=== PATIENT | male | born 1995 | race Caucasian/White ===

== ENCOUNTER 2023-08-25 07:25 | Emergency (ER) | payer OTHER, SELFPAY ==
[2023-08-25 07:41] VITALS: BP 135/60; PULSE 90; RESP 18; TEMP 36.7; O2SAT 97; BMI 26.9
--- NOTE | 2023-08-25 07:45 | DI.RAD.S_ITS ---
PROCEDURE: XR KNEE LT 3V INDICATIONS: felt pop TECHNIQUE: 3 views of the knee were acquired. COMPARISON: None. FINDINGS: Bones: No fractures or dislocations. No suspicious bony lesions. Soft tissues: Small joint effusion. No suspicious soft tissue calcifications. IMPRESSION: No acute osseous abnormality. Consider MRI for follow-up examination. Dictated by: Bonilla Glover M.D. on 08/25/2023 at 9:08 Approved by: Bonilla Glover M.D. on 08/25/2023 at 9:08
--- NOTE | 2023-08-25 08:23 | ED_ITS ---
HPI - Extremity Injury (Lower) General Chief Complaint: Extremity Injury, Lower Stated Complaint: felt the joint in knee slip Time Seen by Provider: 08/25/23 07:34 Source: patient Mode of arrival: Wheelchair History of Present Illness HPI Narrative: Patient is a 28-year-old male here for evaluation of left knee injury. He states last evening he was wrestling with some individuals. He is unsure exactly what happened whether or not he was hit and twisted his knee or whether it twisted when he was standing up but he stated that he felt like his knee shifted a little bit and then since that time has had discomfort on the inside of the right knee. No other injuries from the event. Is able to walk but has quite a bit of discomfort. Does have discomfort with extending his knee because discomfort not necessarily inability to move the knee. Related Data Allergies Allergy/AdvReac Type Severity Reaction Status Date / Time No Known Drug Allergies Allergy Verified 08/25/23 07:41 Review of Systems Constitutional Constitutional: Reports system reviewed and no additional complaints, except as documented Musculoskeletal Musculoskeletal: Reports system reviewed and no additional complaints, except as documented Integumentary/Breasts Skin/Breast: Reports system reviewed and no additional complaints, except as documented Neurologic Neurologic: Reports system reviewed and no additional complaints, except as documented Patient History tobacco type: vaping alcohol intake frequency: a few times a week Substance Use Type: does not use Exam Initial Vital Signs Initial Vital Signs: Vital Signs Temperature 98.1 F 08/25/23 07:41 Pulse Rate 90 08/25/23 07:41 Respiratory Rate 18 08/25/23 07:41 Blood Pressure 135/60 08/25/23 07:41 Pulse Oximetry 97 08/25/23 07:41 Oxygen Delivery Method Room Air 08/25/23 07:41 HENNE Head: normal to inspection and normocephalic Skin General: no rashes or lesions noted Neuro Sensory Exam: no sensory deficits noted Extrem Other: Moderate effusion left knee. His patella tendon and quadriceps tendon are intact. Hamstrings are intact without discomfort. His ACL MCL PCL and LCL are intact with functional testing but does have some discomfort with stressing of the MCL. Does have tenderness along the medial joint line. Procedures Orthopedic Splinting/Casting Injury #1: Side: left Lower Extremity Injury Location: knee Lower Extremity Immobilizer: Seymour wrap Other Orthopedic Equipment: crutches Post splinting neuro exam: intact Post splinting vascular exam: intact Placed by: Nursing Course Orders Ordered: ED Orders 08/25/23 07:45 XR knee LT 3V Stat Vital Signs Vital signs: Vital Signs - 8 hr 08/25/23 07:41 Temperature 98.1 F Pulse Rate 90 Respiratory Rate 18 Blood Pressure 135/60 Pulse Oximetry 97 Oxygen Delivery Method Room Air MDM - Extremity Injury (Lower) Imaging Data Extremity x-ray #1: My Impression: No fractures or dislocations. MDM Narrative Medical decision making narrative: X-ray shows no fractures nor dislocations. I do have some concern about potentially a MCL injury although I do not think that it is completely torn. I have higher suspicion that this is a meniscus injury. I discuss this with him. We did give him an elastic bandage for comfort and also crutches. Patient can ambulate as tolerated. He was given return precautions and follow-up instr uctions. He expressed understanding and agreement. Discharge Plan Departure Patient Disposition: Home Clinical Impression: Left knee sprain Instructions: How to Use Crutches, How to Use an Elastic Bandage-Knee Sprain, DI for Knee Sprain, How To Perform RICE (Rest, Ice, Compress, Elevate) Activity Restrictions/Additional Instructions: There were no fractures noted on the x-rays you can walk on your left knee as tolerated. The crutches are for your comfort. I do recommend that you try to s [place] off it as much as possible. I also recommend ice and either an elastic bandage or a knee brace like we discussed. Contact your primary doctor for a follow-up. Return to the emergency department for new symptoms. You can take Tylenol/ibuprofen for discomfort. Referrals: [facility] [Primary Care Provider] - Stand Alone Forms: Patient Portal/API
[2023-08-25] MEDS: IBUPROFEN 400 MG TABLET 800 MG PO (08:51)
== END 2023-08-25 08:56 | disposition home or self-care (01) ==
PROVIDERS: Emergency Provider Emergency Medicine
DX: S83.92XA Sprain of unspecified site of left knee, initial encounter (principal); X58.XXXA Exposure to other specified factors, initial encounter; Y93.72 Activity, wrestling
CPT/HCPCS: 73562; 99283